=== PATIENT | male | born 1985 | race Caucasian/White ===

== ENCOUNTER 2021-09-13 15:32 | Emergency (ER) | payer BC ==
--- NOTE | 2021-09-13 15:52 | EDM.PDOC ---
ED HPI GENERAL MEDICAL PROBLEM - General Chief Complaint: Abdominal Pain Stated Complaint: SEVERE ABDOMINAL PAIN Time Seen by Provider: 09/13/21 15:52 Source of Information: Reports: Patient - History of Present Illness INITIAL COMMENTS - FREE TEXT/NARRATIVE: Monico, 36-year-old male, presents per pedis to the emergency department with complaint of abdominal pain. Known Crohn's disease with flare-up starting the past 24 hours. Was seen in the clinic last Thursday [facility] at [place] with lab work at that time being within normal limits, "actually improved since previous testing had been done." Had an adjustment in his medication which is not proving to be beneficial at this time. States any intake of solids or even water induces abdominal discomfort, cramping that sometimes will induce emesis. Has had no triggers that would interfere with this with his diet, or fluid intake that he is aware of. Denies fever chills or any form of illness. Onset: Gradual Duration: Day(s):, Getting Worse Location: Reports: Abdomen Middle Abdominal Pain Score (Numeric/FACES): 9 - Related Data Allergies Allergy/AdvReac Type Severity Reaction Status Date / Time Sulfa (Sulfonamide Allergy Hives Verified 09/13/21 15:53 Antibiotics) Home Meds: Home Meds Dicyclomine [Bentyl] 20 mg PO QID PRN 09/13/21 [History] Ustekinumab [Stelara] 45 mg SQ ASDIRECTED 09/13/21 [History] azaTHIOprine [Azathioprine] 50 mg PO DAILY 09/13/21 [History] Past Medical History HEENT History: Reports: Other (See Below) Other HEENT History: glasses for correction Gastrointestinal History: Reports: Other (See Below) Other Gastrointestinal History: Crohn's Social & Family History - Family History Family Medical History: No Pertinent Family History ED ROS GENERAL - Review of Systems Review Of Systems: Comprehensive ROS is negative, except as noted in HPI. ED EXAM, GENERAL - Physical Exam Exam: See Below Free Text/Narrative:: Alert, oriented, in mild nontoxic appearing distress. There is no cyanosis nor pallor noted. HEENT is negative the discharge nor deformity. Archie moist mucous membranes. Neck is soft supple with no lymphadenopathy Thorax is clear with no wheezes nor crackles. Cardiac is regular with no appreciated murmur. Abdomen is soft he expresses mild tenderness across the central abdomen bilateral of the umbilicus. Bowel sounds are present throughout and are slightly fast, but no tinkling nor evidence of obstruction is noted. There is no rebound tenderness. I do not appreciate any megaly of the organs. He is able to move his extremities about with no difficulty. States that sometimes positioning will improve this but in general states it is doing well until a cramp occurs that becomes painful and they typically pass within a few minutes providing is not had recent oral intake. Has been using his Bentyl as needed. Course - Vital Signs Last Recorded V/S: Last Vital Signs Temp 98.7 F 09/13/21 15:48 Pulse 85 09/13/21 16:51 Resp 16 09/13/21 16:51 BP 130/96 H 09/13/21 16:51 Pulse Ox 98 09/13/21 16:51 - Orders/Labs/Meds Orders: Active Orders 24 hr Category Date Time Status Peripheral IV Insertion Adult [OM.PC] Stat Oth 09/13/21 15:59 Ordered Peripheral IV Insertion Adult [OM.PC] Stat Oth 09/13/21 16:24 Ordered Labs: Laboratory Tests 09/13/21 09/13/21 Range/Units 16:00 16:00 WBC 11.40 H (5.00-10.00) 10^3/uL RBC 4.60 (4.50-6.00) 10^6/uL Hgb 14.4 (13.0-17.0) g/dL Hct 43.5 (40.0-52.0) % MCV 94.6 H (82.0-92.0) fL MCH 31.3 H (27.0-31.0) pg MCHC 33.1 (32.0-36.0) g/dL RDW 13.6 (11.5-14.5) % Plt Count 403 H (150-400) 10^3/uL MPV 9.1 (7.4-10.4) fL Immature Gran % (Auto) 0.2 (0.0-5.0) % Neut % (Auto) 81.7 H (50.0-70.0) % Lymph % (Auto) 8.9 L (20.0-40.0) % Rowan % (Auto) 6.5 (2.0-8.0) % Eos % (Auto) 2.4 (1.0-3.0) % Baso % (Auto) 0.3 (0.0-1.0) % Neut # (Auto) 9.33 H (2.50-7.00) 10^3/uL Lymph # (Auto) 1.01 (1.00-4.00) 10^3/uL Rowan # (Auto) 0.74 (0.10-0.80) 10^3/uL Eos # (Auto) 0.27 (0.10-0.30) 10^3/uL Baso # (Auto) 0.03 (0.00-0.10) 10^3/uL Immature Gran # (Auto) 0.02 (0.00-0.50) 10^3/uL Sodium 144 (136-145) mmol/L Potassium 3.6 (3.5-5.1) mmol/L Chloride 104 (98-107) mmol/L Carbon Dioxide 26.2 (21.0-32.0) mmol/L Anion Gap 17.4 H (5-15) mmol/L BUN 8 (7-18) mg/dL Creatinine 0.87 (0.51-1.17) mg/dL Est Cr Clr Drug Dosing 128.84 mL/min Estimated GFR (MDRD) > 60 mL/min Glucose 96 (70-140) mg/dL Calcium 8.9 (8.7-10.3) mg/dL Total Bilirubin 1.0 (0.2-1.0) mg/dL AST 16 (15-37) U/L ALT 17 (14-63) U/L Alkaline Phosphatase 81 (46-116) U/L C-Reactive Protein 4.7 H (0.0-0.9) mg/dL Total Protein 6.8 (6.4-8.2) g/dL Albumin 3.43 (3.40-5.00) g/dL Amylase 29 (25-125) U/L Lipase 73 (73-393) U/L Meds: Medications Discontinued Medications Generic Name Dose Route Start Last Admin Trade Name Freq PRN Reason Stop Dose Admin Dicyclomine HCl 20 mg 09/13/21 16:01 09/13/21 16:27 Dicyclomine 20 Mg/2 Ml Sdv IM 09/13/21 16:02 20 mg ONETIME ONE Administration Hydromorphone HCl 1 mg 09/13/21 16:02 09/13/21 16:17 Hydromorphone 1 Mg/Ml Syringe IVPUSH 09/13/21 16:03 1 mg ONETIME ONE Administration Sodium Chloride 1,000 mls @ 999 mls/hr 09/13/21 16:02 09/13/21 16:15 Normal Saline IV 09/13/21 17:02 999 mls/hr .BOLUS ONE Administration Sodium Chloride 10 ml 09/13/21 16:01 Sodium Chloride 0.9% 10 Ml Syringe FLUSH Q8HR PRN keep vein open Sodium Chloride 10 ml 09/13/21 16:24 Sodium Chloride 0.9% 10 Ml Syringe FLUSH Q8HR PRN keep vein open - Re-Assessments/Exams Free Text/Narrative Re-Assessment/Exam: 09/13/21 16:53 Resting comfortable at this time stating abdominal pain has nearly subsided after hydromorphone, IM Bentyl, and 600 of IV normal saline at this time. Free Text/Narrative Re-Assessment/Exam: 09/13/21 20:43 Review of the [place] chart shows significant improvement in his CRP today compared to his shows significant improvement in his CRP today compared to his. Very low elevation of his WBCs which could be an inflammatory which could be an inflammatory as he should have exhibits no evidence of infectious process infectious process After the fluid and medications administered he is pain-free resting comfortably awaiting discharge. I do explained that he should probably increase his Bentyl to 20 mg and take it 4 times a day to help resolve resting comfortably awaiting discharge. I do explained that he should probably increase his Bentyl to 20 mg and take it 4 times a day to help resolve improve his cramping and contact his provider on Thursday and contact his provider on Thursday these findings as well as potential for adjustment in medication adjustment in medication September. Departure - Departure Time of Disposition: 18:05 Disposition: Home, Self-Care 01 Condition: Good Clinical Impression: Crohn's disease Qualifiers: Gastrointestinal tract location: unspecified location Abdominal pain Qualifiers: Abdominal location: generalized Qualified Code(s): R10.84 - Generalized abdominal pain - Discharge Information *PRESCRIPTION DRUG MONITORING PROGRAM REVIEWED*: Not Applicable *COPY OF PRESCRIPTION DRUG MONITORING REPORT IN PATIENT JEFF: Not Applicable Instructions: Crohn's Disease Referrals: PCP,Not In Area [Primary Care Provider] - Forms: ED Department Discharge Additional Instructions: We will discharge you home continue your medications as ordered other than increasing your Bentyl taking it on a scheduled basis 4 times a day, 20 mg each dose. Other medications as directed. Make sure you drink and eat according to your diet tolerability and contact your provider next week to update them on the status of this visit and your progress since that. In the event you flareup prior to getting to the clinic next week consideration for return to the emergency department. Sepsis Event Note (ED) - Focused Exam Vital Signs: Vital Signs Temp Pulse Resp BP Pulse Ox 09/13/21 16:51 85 16 130/96 H 98 09/13/21 15:48 98.7 F 96 20 166/117 H 98 - Problem List & Annotations (1) Crohn's disease SNOMED Code(s): 40614948 Code(s): K50.90 - CROHN'S DISEASE, UNSPECIFIED, WITHOUT COMPLICATIONS Status: Acute Priority: High Qualifiers: Gastrointestinal tract location: small and large intestine Digestive disease complication type: unspecified complication Qualified Code(s): K50.819 - Crohn's disease of both small and large intestine with unspecified complications (2) Abdominal pain SNOMED Code(s): 86029757 Code(s): R10.9 - UNSPECIFIED ABDOMINAL PAIN Status: Acute Qualifiers: Abdominal location: generalized Qualified Code(s): R10.84 - Generalized abdominal pain - Problem List Review Problem List Initiated/Reviewed/Updated: Yes - My Orders Last 24 Hours: My Active Orders 09/13/21 15:59 Peripheral IV Insertion Adult [OM.PC] Stat 09/13/21 16:24 Peripheral IV Insertion Adult [OM.PC] Stat - Assessment/Plan Last 24 Hours: My Active Orders 09/13/21 15:59 Peripheral IV Insertion Adult [OM.PC] Stat 09/13/21 16:24 Peripheral IV Insertion Adult [OM.PC] Stat Plan: We will discharge you home continue your medications as ordered other than increasing your Bentyl taking it on a scheduled basis 4 times a day, 20 mg each dose. Other medications as directed. Make sure you drink and eat according to your diet tolerability and contact your provider next week to update them on the status of this visit and your progress since that. In the event you flareup prior to getting to the clinic next week consideration for return to the emergency department.
[2021-09-13] MEDS ORDERED: Sodium Chloride 0.9% 10 ML Syringe FLUSH PRN ×2 (16:01→16:24)
[2021-09-13] MEDS ORDERED: Dicyclomine 20 MG/2 ML SDV IM ONE (16:01)
[2021-09-13] MEDS ORDERED: Sodium Chloride 0.9% 1,000 ML IV ONE (16:02)
[2021-09-13] MEDS ORDERED: HYDROmorphone 1 MG/ML Syringe IVPUSH ONE (16:02)
[2021-09-13 16:51] LABS: ANION GAP 17.4 mmol/L (5-15); CHLORIDE,CL 104 mmol/L (98-107); SODIUM,NA 144 mmol/L (136-145)
[2021-09-13 16:52] VITALS: BP 130/96; PULSE 85
== END 2021-09-13 18:26 | disposition home or self-care (01) ==
LOC: KA.ED 15:32
DX: K50.90 Crohn's disease, unspecified, without complications (principal); Z88.2 Allergy status to sulfonamides
CPT/HCPCS: 36415; 80053; 82150; 83690; 85025; 86140; 96372; 96374; 99284; 99284-25; J0500; J1170; J7030

== ENCOUNTER 2021-09-22 16:27 | Emergency (ER) | payer BC ==
[2021-09-22] MEDS ORDERED: Sodium Chloride 0.9% 1,000 ML IV ONE (17:04)
[2021-09-22] MEDS ORDERED: Sodium Chloride 0.9% 10 ML Syringe FLUSH PRN (17:04)
[2021-09-22 17:33] VITALS: BP 138/101; PULSE 76
[2021-09-22 17:39] LABS: ANION GAP 11.1 mmol/L (5-15); CHLORIDE,CL 105 mmol/L (98-107); SODIUM,NA 142 mmol/L (136-145)
[2021-09-22] MEDS ORDERED: HYDROmorphone 1 MG/ML Syringe IVPUSH ONE (18:05)
[2021-09-22] MEDS ORDERED: methylPREDNISolone Sodium Succinate 125 MG/2 ML SDV IVPUSH ONE (18:06)
[2021-09-22] MEDS ORDERED: Ondansetron 4 MG/2 ML SDV IVPUSH ONE (18:06)
--- NOTE | 2021-09-22 18:21 | EDM.PDOC ---
ED HPI GENERAL MEDICAL PROBLEM - General Chief Complaint: General Stated Complaint: BAD STOMACHE PAINS Time Seen by Provider: 09/22/21 17:00 Source of Information: Reports: Patient History Limitations: Reports: No Limitations - History of Present Illness INITIAL COMMENTS - FREE TEXT/NARRATIVE: 36-year-old male presents to the emergency room by himself for complaints of abdominal pain. He has had recent flareups of his Crohn disease over the last couple weeks. He was seen in the emergency room a week ago on Thursday. He has had recent work-ups by his endocrinology teacher in [place]. Lab work has looked pretty unremarkable. He had an additional flareup last Thursday. He was started on Bentall 20 mg p.o. 4 times daily. He does take Stelara for his Crohn's. He denies currently any bleeding from the rectum. He has some loss of appetite. He denies any recent illnesses. His lab work previous looked essentially unremarkable. His white count on his last visit was 11.4 today his lab work shows a white count is 10.27. He reports his pain is more of an ache. He had abrupt onset of his pain after eating after at 10 AM this morning. He has been experiencing some nausea. No vomiting. He is not currently on any steroids. He is nontoxic appearing. Follow-up with his endocrinology teacher is planned for next Thursday which they discussed about proceeding with a CT IV and oral contrast. Onset: Today Onset Date: 09/22/21 Onset Time: 10:00 Duration: Chronic, Getting Worse Location: Reports: Abdomen Quality: Reports: Ache Severity: Moderate Improves with: Reports: Rest Worsens with: Reports: Eating Associated Symptoms: Reports: No Other Symptoms Treatments [facility] TECHNICIAN: Reports: Other Medication(s) Abdomen Pain Score (Numeric/FACES): 8 - Related Data Allergies Allergy/AdvReac Type Severity Reaction Status Date / Time Sulfa (Sulfonamide Allergy Hives Verified 09/22/21 16:50 Antibiotics) Home Meds: Home Meds Dicyclomine [Bentyl] 20 mg PO QID PRN 09/13/21 [History] Ustekinumab [Stelara] 45 mg SQ ASDIRECTED 09/13/21 [History] azaTHIOprine [Azathioprine] 75 mg PO BID 09/13/21 [History] Past Medical History HEENT History: Reports: Other (See Below) Other HEENT History: glasses for correction Gastrointestinal History: Reports: GERD, Other (See Below) Other Gastrointestinal History: Crohn's - Infectious Disease History Infectious Disease History: Reports: Chicken Pox, Shingles - Past Surgical History HEENT Surgical History: Reports: None GI Surgical History: Reports: Colostomy, Hernia, Inguinal Social & Family History - Family History Family Medical History: No Pertinent Family History - Tobacco Use Tobacco Use Status *Q: Never Tobacco User - Caffeine Use Caffeine Use: Reports: Coffee, Soda - Recreational Drug Use Recreational Drug Use: No ED ROS GENERAL - Review of Systems Review Of Systems: See Below Constitutional: Reports: No Symptoms HEENT: Reports: No Symptoms Respiratory: Reports: No Symptoms Cardiovascular: Reports: No Symptoms Endocrine: Reports: No Symptoms GI/Abdominal: Reports: Abdominal Pain, Anorexia, Black Stool, Nausea. Denies: Bloody Stool, Constipation, Diarrhea, Hematemesis, Stool Incontinence, Vomiting : Reports: No Symptoms Musculoskeletal: Reports: No Symptoms Skin: Reports: No Symptoms Neurological: Reports: No Symptoms Psychiatric: Reports: No Symptoms Hematologic/Lymphatic: Reports: No Symptoms Immunologic: Reports: No Symptoms ED EXAM, GENERAL - Physical Exam Exam: See Below Exam Limited By: No Limitations General Appearance: Alert, WD/WN, No Apparent Distress Eye Exam: Bilateral Eye: EOMI Ears: Hearing Grossly Normal Nose: Normal Inspection Throat/Mouth: Normal Inspection, Normal Voice, No Airway Compromise Head: Atraumatic Neck: Normal Inspection Respiratory/Chest: No Respiratory Distress, Lungs Clear, Normal Breath Sounds, No Accessory Muscle Use Cardiovascular: Regular Rate, Rhythm, No Murmur GI/Abdominal: Normal Bowel Sounds, Soft, No Organomegaly, No Distention, Tender (Tenderness in both lower quadrants.). No: Distended, Guarding, Rigid, Rebound Back Exam: Normal Inspection, Full Range of Motion Extremities: Normal Inspection, Normal Range of Motion, Non-Tender, No Pedal Edema Neurological: Alert, Oriented, No Motor/Sensory Deficits Psychiatric: Normal Affect, Normal Mood Skin Exam: Warm, Dry, Intact, Normal Color, No Rash Lymphatic: No Adenopathy Course - Vital Signs Last Recorded V/S: Last Vital Signs Temp 98.3 F 09/22/21 16:42 Pulse 76 09/22/21 17:30 Resp 18 09/22/21 16:42 BP 138/101 H 09/22/21 17:30 Pulse Ox 99 09/22/21 17:30 - Orders/Labs/Meds Orders: Active Orders 24 hr Category Date Time Status Peripheral IV Care [RC] . DIRECTED Care 09/22/21 17:05 Active Sodium Chloride 0.9% [Saline Flush] Med 09/22/21 17:04 Active 10 ml FLUSH Q8HR PRN Peripheral IV Insertion Adult [OM.PC] Routine Oth 09/22/21 17:04 Ordered Medication Orders Sodium Chloride (Sodium Chloride 0.9% 10 Ml Syringe) 10 ml FLUSH Q8HR PRN PRN Reason: keep vein open Last Admin: 09/22/21 17:19 Dose: 10 ml Documented by: SACHA Labs: Laboratory Tests 09/22/21 09/22/21 Range/Units 17:04 17:04 WBC 10.27 H (5.00-10.00) 10^3/uL RBC 4.62 (4.50-6.00) 10^6/uL Hgb 14.3 (13.0-17.0) g/dL Hct 43.1 (40.0-52.0) % MCV 93.3 H (82.0-92.0) fL MCH 31.0 (27.0-31.0) pg MCHC 33.2 (32.0-36.0) g/dL RDW 12.9 (11.5-14.5) % Plt Count 446 H (150-400) 10^3/uL MPV 9.2 (7.4-10.4) fL Immature Gran % (Auto) 0.1 (0.0-5.0) % Neut % (Auto) 75.8 H (50.0-70.0) % Lymph % (Auto) 14.2 L (20.0-40.0) % [place] % (Auto) 6.6 (2.0-8.0) % Eos % (Auto) 2.9 (1.0-3.0) % Baso % (Auto) 0.4 (0.0-1.0) % Neut # (Auto) 7.78 H (2.50-7.00) 10^3/uL Lymph # (Auto) 1.46 (1.00-4.00) 10^3/uL [place] # (Auto) 0.68 (0.10-0.80) 10^3/uL Eos # (Auto) 0.30 (0.10-0.30) 10^3/uL Baso # (Auto) 0.04 (0.00-0.10) 10^3/uL Immature Gran # (Auto) 0.01 (0.00-0.50) 10^3/uL Sodium 142 (136-145) mmol/L Potassium 3.4 L (3.5-5.1) mmol/L Chloride 105 (98-107) mmol/L Carbon Dioxide 29.3 (21.0-32.0) mmol/L Anion Gap 11.1 (5-15) mmol/L BUN 7 (7-18) mg/dL Creatinine 0.87 (0.51-1.17) mg/dL Est Cr Clr Drug Dosing 128.84 mL/min Estimated GFR (MDRD) > 60 mL/min Glucose 115 (70-140) mg/dL Calcium 8.5 L (8.7-10.3) mg/dL Total Bilirubin 0.6 (0.2-1.0) mg/dL AST 12 L (15-37) U/L ALT 17 (14-63) U/L Alkaline Phosphatase 74 (46-116) U/L Total Protein 6.5 (6.4-8.2) g/dL Albumin 3.20 L (3.40-5.00) g/dL Meds: Medications Generic Name Dose Route Start Last Admin Trade Name Freq PRN Reason Stop Dose Admin Sodium Chloride 10 ml 09/22/21 17:04 09/22/21 17:19 Sodium Chloride 0.9% 10 Ml Syringe FLUSH 10 ml Q8HR PRN Administration keep vein open Discontinued Medications Generic Name Dose Route Start Last Admin Trade Name Freq PRN Reason Stop Dose Admin Hydromorphone HCl 1 mg 09/22/21 18:05 Hydromorphone 1 Mg/Ml Syringe IVPUSH 09/22/21 18:06 ONETIME ONE Sodium Chloride 1,000 mls @ 999 mls/hr 09/22/21 17:04 09/22/21 17:18 Normal Saline IV 09/22/21 18:04 999 mls/hr .BOLUS ONE Administration Methylprednisolone Sodium Succinate 125 mg 09/22/21 18:06 Methylprednisolone Sodium Succinate 125 Mg/2 Ml Sdv IVPUSH 09/22/21 18:07 ONETIME ONE Ondansetron HCl 4 mg 09/22/21 18:06 Ondansetron 4 Mg/2 Ml Sdv IVPUSH 09/22/21 18:07 ONETIME ONE - Re-Assessments/Exams Free Text/Narrative Re-Assessment/Exam: 09/22/21 18:30 Patient is given 1 L IV fluids. Lab work is reviewed. White count is normal. Rest of his electrolytes look unremarkable. Patient was given 125 mg of IV Solu-Medrol. Patient was given 4 g IV Zofran. Patient was given 1 mg IV Dilaudid. 09/22/21 18:55 Patient feels his symptoms are relieved he is not currently experiencing any abdominal pain at this time Departure - Departure Time of Disposition: 18:56 Disposition: Home, Self-Care 01 Condition: Good Clinical Impression: Abdominal pain, acute, bilateral lower quadrant Crohn's disease Qualifiers: Gastrointestinal tract location: small and large intestine Digestive disease complication type: unspecified complication Qualified Code(s): K50.819 - Crohn's disease of both small and large intestine with unspecified complications - Discharge Information Referrals: PCP,Not In Area [Primary Care Provider] - Sepsis Event Note (ED) - Evaluation Sepsis Screening Result: No Definite Risk - Focused Exam Vital Signs: Vital Signs Temp Pulse Resp BP Pulse Ox 09/22/21 17:30 76 138/101 H 99 09/22/21 17:15 70 140/105 H 94 L 09/22/21 17:00 84 154/96 H 96 09/22/21 16:45 70 159/102 H 94 L 09/22/21 16:42 98.3 F 79 18 171/110 H 98 - My Orders Last 24 Hours: My Active Orders 09/22/21 17:04 Sodium Chloride 0.9% [Saline Flush] 10 ml FLUSH Q8HR PRN Peripheral IV Insertion Adult [OM.PC] Routine 09/22/21 17:05 Peripheral IV Care [RC] . DIRECTED - Assessment/Plan Last 24 Hours: My Active Orders 09/22/21 17:04 Sodium Chloride 0.9% [Saline Flush] 10 ml FLUSH Q8HR PRN Peripheral IV Insertion Adult [OM.PC] Routine 09/22/21 17:05 Peripheral IV Care [RC] . DIRECTED Assessment:: Flareup of Crohn's. Acute abdominal pain. Plan: 1. 1 L normal saline fluids given 2. Patient was given 125 mg IV Solu-Medrol. 3. Zofran 4 mg IV given 4. Dilaudid 1 mg IV for abdominal pain given 5. Patient will be sent home on some oral Zofran ODT as needed for nausea. Start him on prednisone 50 mg daily. 6. Patient will keep his scheduled appointment with his endocrinology teacher next week in [place].. 7. Return back to the emergency room if symptoms worsen or abdominal pain persist without relief. 8. Patient will continue with his regularly prescribed medications for his Crohn's.
== END 2021-09-22 19:00 | disposition home or self-care (01) ==
LOC: KA.ED 16:27
DX: K50.819 Crohn's disease of both small and large intestine with unspecified complications (principal); Z88.2 Allergy status to sulfonamides; Z79.899 Other long term (current) drug therapy
CPT/HCPCS: 36415; 80053; 85025; 96374; 96375; 99284; 99284-25; J1170; J2405; J2930; J7030

== ENCOUNTER 2021-10-03 17:30 | Emergency (ER) | payer BC ==
[2021-10-03 17:43] VITALS: BP 150/107; PULSE 83
[2021-10-03] MEDS ORDERED: Sodium Chloride 0.9% 10 ML Syringe FLUSH PRN (17:51)
[2021-10-03] MEDS ORDERED: Sodium Chloride 0.9% 1,000 ML IV ONE (17:51)
[2021-10-03] MEDS ORDERED: HYDROmorphone 1 MG/ML Syringe IVPUSH ONE (18:15)
[2021-10-03] MEDS ORDERED: Ondansetron 4 MG/2 ML SDV IVPUSH ONE (18:15)
[2021-10-03] MEDS ORDERED: methylPREDNISolone Sodium Succinate 125 MG/2 ML SDV IVPUSH ONE (18:15)
[2021-10-03 18:20] LABS: ANION GAP 15.1 mmol/L (5-15); CHLORIDE,CL 104 mmol/L (98-107); SODIUM,NA 143 mmol/L (136-145)
--- NOTE | 2021-10-03 18:28 | EDM.PDOC ---
ED HPI GENERAL MEDICAL PROBLEM - General Chief Complaint: Abdominal Pain Stated Complaint: ABDOMINAL PAIN Time Seen by Provider: 10/03/21 18:16 Source of Information: Reports: Patient History Limitations: Reports: No Limitations - History of Present Illness INITIAL COMMENTS - FREE TEXT/NARRATIVE: 36 YO WM PRESENTS TO ER WITH COMPLAINTS OF PERIUMBILICAL ABDOMINAL PAIN WITH HISTORY OF CROHN'S DZ. PT RECENTLY SEEN IN [place] BY GASTROENTEROLOGY WHO ORDERED CT ABD/PELVIS 10/01/2021- RESULTS THICKENING OF JEJUNUM WITHOUT ABSCESS. PT CURRENTLY TAKING PREDNISONE 40MG DAILY WITH INSTRUCTIONS TO TAPER. PT ON NEW IMMUNOSUPPRESSANT INFUSIONS BUT PT REPORTS IT DOESN'T APPEAR TO BE HELPING. PT DENIES NAUSEA/VOMITING, NO FEVER/CHILLS. PT REPORTS DIARRHEA HAS IMPROVED SINCE STARTING INFUSIONS BUT ABDOMINAL PAIN HAS PERSISTED. PT DENIES RECTAL BLEEDING. PT EATING AND DRINKING WELL BUT REPORTS IT DOES INCREASE HIS PAIN WITH ANY INGESTION. Duration: Chronic, Improving, Waxing/Waning Location: Reports: Abdomen Quality: Reports: Ache Severity: Moderate Improves with: Reports: None Worsens with: Reports: None Associated Symptoms: Reports: No Other Symptoms, Loss of Appetite. Denies: Fever/Chills, Nausea/Vomiting, Rash Middle Abdominal Pain Score (Numeric/FACES): 8 - Related Data Allergies Allergy/AdvReac Type Severity Reaction Status Date / Time Sulfa (Sulfonamide Allergy Hives Verified 10/03/21 17:38 Antibiotics) Home Meds: Home Meds azaTHIOprine [Azathioprine] 75 mg PO BID 09/13/21 [History] Hydrocodone/Acetaminophen [HYDROcodone-Acetaminophen 10-325 MG] 1 each PO Q6HR PRN #10 tablet 10/03/21 [Rx] Non-Formulary Medication [NF Drug] 1 dose IV Q2M 10/03/21 [History] predniSONE [Prednisone] 40 mg PO ASDIRECTED 10/03/21 [History] Past Medical History HEENT History: Reports: Other (See Below) Other HEENT History: glasses for correction Gastrointestinal History: Reports: GERD, Other (See Below) Other Gastrointestinal History: Crohn's - Infectious Disease History Infectious Disease History: Reports: Chicken Pox, Shingles - Past Surgical History HEENT Surgical History: Reports: None GI Surgical History: Reports: Colostomy, Hernia, Inguinal Social & Family History - Family History Family Medical History: No Pertinent Family History - Caffeine Use Caffeine Use: Reports: Coffee, Soda ED ROS GENERAL - Review of Systems Review Of Systems: See Below Constitutional: Reports: No Symptoms HEENT: Reports: No Symptoms Respiratory: Reports: No Symptoms Cardiovascular: Reports: No Symptoms Endocrine: Reports: No Symptoms GI/Abdominal: Reports: Abdominal Pain, Diarrhea : Reports: No Symptoms Musculoskeletal: Reports: No Symptoms Skin: Reports: No Symptoms Neurological: Reports: No Symptoms Psychiatric: Reports: No Symptoms Hematologic/Lymphatic: Reports: No Symptoms Immunologic: Reports: No Symptoms ED EXAM, GI/ABD - Physical Exam Exam: See Below Exam Limited By: No Limitations General Appearance: Alert, WD/WN, No Apparent Distress Respiratory/Chest: No Respiratory Distress, Lungs Clear, Normal Breath Sounds, No Accessory Muscle Use, Chest Non-Tender Cardiovascular: Normal Peripheral Pulses, Regular Rate, Rhythm, No Edema, No Gallop, No JVD, No Murmur, No Rub GI/Abdominal Exam: Normal Bowel Sounds, Soft, No Organomegaly, No Distention, No Abnormal Bruit, No Mass, Pelvis Stable, Tender (LOWER ABDOMINAL TENDERNESS WITHOUT REBOUND OR GUARDING. ) Back Exam: Normal Inspection, Full Range of Motion, NT Extremities: Normal Inspection, Normal Range of Motion, Non-Tender, Normal Capillary Refill, No Pedal Edema Neurological: Alert, Oriented, CN II-XII Intact, Normal Cognition, Normal Gait, Normal Reflexes, No Motor/Sensory Deficits Psychiatric: Normal Affect, Normal Mood Skin Exam: Warm, Dry, Intact, Normal Color, No Rash Lymphatic: No Adenopathy Course - Vital Signs Last Recorded V/S: Last Vital Signs Temp 98.6 F 10/03/21 17:40 Pulse 83 10/03/21 17:40 Resp 16 10/03/21 17:40 BP 150/107 H 10/03/21 17:40 Pulse Ox 96 10/03/21 17:40 - Orders/Labs/Meds Orders: Active Orders 24 hr Category Date Time Status Peripheral IV Care [RC] . DIRECTED Care 10/03/21 17:51 Active UA W/MICROSCOPIC [URIN] Stat Lab 10/03/21 17:51 Ordered Sodium Chloride 0.9% [Normal Saline] 1,000 ml Med 10/03/21 17:51 Active IV .BOLUS Sodium Chloride 0.9% [Saline Flush] Med 10/03/21 17:51 Active 10 ml FLUSH Q8HR PRN Peripheral IV Insertion Adult [OM.PC] Routine Oth 10/03/21 17:51 Ordered Medication Orders Sodium Chloride (Normal Saline) 1,000 mls @ 999 mls/hr IV .BOLUS ONE Stop: 10/03/21 18:51 Last Admin: 10/03/21 18:02 Dose: 999 mls/hr Documented by: CR Sodium Chloride (Sodium Chloride 0.9% 10 Ml Syringe) 10 ml FLUSH Q8HR PRN PRN Reason: keep vein open Last Admin: 10/03/21 18:02 Dose: 10 ml Documented by: CR Labs: Laboratory Tests 10/03/21 10/03/21 Range/Units 17:51 17:51 WBC 18.77 H (5.00-10.00) 10^3/uL RBC 4.68 (4.50-6.00) 10^6/uL Hgb 14.5 (13.0-17.0) g/dL Hct 44.2 (40.0-52.0) % MCV 94.4 H (82.0-92.0) fL MCH 31.0 (27.0-31.0) pg MCHC 32.8 (32.0-36.0) g/dL RDW 13.0 (11.5-14.5) % Plt Count 487 H (150-400) 10^3/uL MPV 8.9 (7.4-10.4) fL Immature Gran % (Auto) 0.5 (0.0-5.0) % Neut % (Auto) 88.2 H (50.0-70.0) % Lymph % (Auto) 5.9 L (20.0-40.0) % [place] % (Auto) 5.3 (2.0-8.0) % Eos % (Auto) 0.0 L (1.0-3.0) % Baso % (Auto) 0.1 (0.0-1.0) % Neut # (Auto) 16.57 H (2.50-7.00) 10^3/uL Lymph # (Auto) 1.10 (1.00-4.00) 10^3/uL [place] # (Auto) 1.00 H (0.10-0.80) 10^3/uL Eos # (Auto) 0.00 L (0.10-0.30) 10^3/uL Baso # (Auto) 0.01 (0.00-0.10) 10^3/uL Immature Gran # (Auto) 0.09 (0.00-0.50) 10^3/uL Sodium 143 (136-145) mmol/L Potassium 4.3 (3.5-5.1) mmol/L Chloride 104 (98-107) mmol/L Carbon Dioxide 28.2 (21.0-32.0) mmol/L Anion Gap 15.1 H (5-15) mmol/L BUN 13 (7-18) mg/dL Creatinine 0.77 (0.51-1.17) mg/dL Est Cr Clr Drug Dosing 145.57 mL/min Estimated GFR (MDRD) > 60 mL/min Glucose 102 (70-140) mg/dL Calcium 8.9 (8.7-10.3) mg/dL Total Bilirubin 0.6 (0.2-1.0) mg/dL AST 13 L (15-37) U/L ALT 32 (14-63) U/L Alkaline Phosphatase 63 (46-116) U/L Total Protein 6.3 L (6.4-8.2) g/dL Albumin 3.25 L (3.40-5.00) g/dL Lipase 81 (73-393) U/L Meds: Medications Generic Name Dose Route Start Last Admin Trade Name Jeana PRN Reason Stop Dose Admin Sodium Chloride 1,000 mls @ 999 mls/hr 10/03/21 17:51 10/03/21 18:02 Normal Saline IV 10/03/21 18:51 999 mls/hr .BOLUS ONE Administration Sodium Chloride 10 ml 10/03/21 17:51 10/03/21 18:02 Sodium Chloride 0.9% 10 Ml Syringe FLUSH 10 ml Q8HR PRN Administration keep vein open Discontinued Medications Generic Name Dose Route Start Last Admin Trade Name Freq PRN Reason Stop Dose Admin Hydromorphone HCl 1 mg 10/03/21 18:15 10/03/21 18:27 Hydromorphone 1 Mg/Ml Syringe IVPUSH 10/03/21 18:16 1 mg ONETIME ONE Administration Methylprednisolone Sodium Succinate 125 mg 10/03/21 18:15 10/03/21 18:30 Methylprednisolone Sodium Succinate 125 Mg/2 Ml Sdv IVPUSH 10/03/21 18:16 125 mg ONETIME ONE Administration Ondansetron HCl 4 mg 10/03/21 18:15 10/03/21 18:24 Ondansetron 4 Mg/2 Ml Sdv IVPUSH 10/03/21 18:16 4 mg ONETIME ONE Administration Departure - Departure Time of Disposition: 18:44 Disposition: Home, Self-Care 01 Condition: Fair Clinical Impression: Crohn's disease Qualifiers: Gastrointestinal tract location: small and large intestine Digestive disease complication type: without complication Qualified Code(s): K50.80 - Crohn's disease of both small and large intestine without complications - Discharge Information Prescriptions: Hydrocodone/Acetaminophen [HYDROcodone-Acetaminophen 10-325 MG] 1 each PO Q6HR PRN #10 tablet PRN Reason: Pain Referrals: Johana Yan SET OFF PRESS OPERATOR [Primary Care Provider] - Forms: ED Department Discharge Additional Instructions: 1. DISCHARGE HOME 2. HYDROCODONE 10/325MG #10 TAKE 1 TABLET BY MOUTH EVERY 6 HOURS NEEDED FOR PAIN 3. CONTINUE PREDNISONE 40MG DAILY 4. CALL GI DOCTOR FOR FURTHER MANAGEMENT 5. RETURN TO ER FOR WORSENING SYMPTOMS Sepsis Event Note (ED) - Evaluation Sepsis Screening Result: No Definite Risk - Focused Exam Vital Signs: Vital Signs Temp Pulse Resp BP Pulse Ox 10/03/21 17:40 98.6 F 83 16 150/107 H 96 - My Orders Last 24 Hours: My Active Orders 10/03/21 17:51 Peripheral IV Care [RC] . DIRECTED UA W/MICROSCOPIC [URIN] Stat Sodium Chloride 0.9% [Normal Saline] 1,000 ml IV .BOLUS Sodium Chloride 0.9% [Saline Flush] 10 ml FLUSH Q8HR PRN Peripheral IV Insertion Adult [OM.PC] Routine - Assessment/Plan Last 24 Hours: My Active Orders 10/03/21 17:51 Peripheral IV Care [RC] . DIRECTED UA W/MICROSCOPIC [URIN] Stat Sodium Chloride 0.9% [Normal Saline] 1,000 ml IV .BOLUS Sodium Chloride 0.9% [Saline Flush] 10 ml FLUSH Q8HR PRN Peripheral IV Insertion Adult [OM.PC] Routine Assessment:: 1. CROHN'S FLARE Plan: 1. DISCHARGE HOME 2. HYDROCODONE 10/325MG #10 TAKE 1 TABLET BY MOUTH EVERY 6 HOURS NEEDED FOR PAIN 3. CONTINUE PREDNISONE 40MG DAILY 4. CALL GI DOCTOR FOR FURTHER MANAGEMENT 5. RETURN TO ER FOR WORSENING SYMPTOMS
== END 2021-10-03 19:22 | disposition home or self-care (01) ==
LOC: KA.ED 17:30
DX: K50.80 Crohn's disease of both small and large intestine without complications (principal); K21.9 Gastro-esophageal reflux disease without esophagitis; Z88.2 Allergy status to sulfonamides; Z79.899 Other long term (current) drug therapy
CPT/HCPCS: 36415; 80053; 83690; 85025; 96374; 96375; 99283; 99284; J1170; J2405; J2930; J7030

== ENCOUNTER 2021-10-23 15:06 | Emergency (ER) | payer BC ==
[2021-10-23] MEDS: Sodium Chloride 0.9% 1,000 ML IV ONE (15:23)
[2021-10-23] MEDS: Ondansetron 4 MG/2 ML SDV IVPUSH ONE (15:28)
--- NOTE | 2021-10-23 15:28 | EDM.PDOC ---
ED HPI GENERAL MEDICAL PROBLEM - General Chief Complaint: Abdominal Pain Stated Complaint: ABDOMINAL PAIN Time Seen by Provider: 10/23/21 15:20 Source of Information: Reports: Patient - History of Present Illness INITIAL COMMENTS - FREE TEXT/NARRATIVE: Monico, 36-year-old male, presents emergency department ambulatory with complaint of Crohn's flareup abdominal pain. He was seen recently with his specialist in [place] undergoing CT IV contrast with no significant issues found. Abscess resolved in sigmoid/rectal tissue. Has had colonoscopy remote enough that they are now willing to undergo that and he is just now completed his initiation trial of medication, having received frirst dose Entyvio 300 mg Scheduled to go on the next scheduled monthly starting November. Is awaiting Covid Vaccination and influenza vaccine per gastro clearance. Denies fever chills or other associated illness. Had bowel movements x3 today with no pain or concerns with them. Denies any urination issues. Denies fever or chills. States he had feeling of this developing this morning upon awakening and spent the morning moving snow in the event of worsening symptoms. Onset: Today, Gradual Lower Mid Abdomen Pain Score (Numeric/FACES): 6 - Related Data Allergies Allergy/AdvReac Type Severity Reaction Status Date / Time Sulfa (Sulfonamide Allergy Hives Verified 10/23/21 15:08 Antibiotics) Home Meds: Home Meds azaTHIOprine [Azathioprine] 75 mg PO BEDTIME 09/13/21 [History] Non-Formulary Medication [NF Drug] 1 dose IV Q2M 10/03/21 [History] predniSONE [Prednisone] 45 mg PO DAILY 10/03/21 [History] Hydrocodone/Acetaminophen [HYDROcodone-Acetaminophen 10-325 MG] 1 each PO 5XDAY 5 Days #10 tablet 10/23/21 [Rx] Past Medical History HEENT History: Reports: Other (See Below) Other HEENT History: glasses for correction Gastrointestinal History: Reports: GERD, Other (See Below) Other Gastrointestinal History: Crohn's - Infectious Disease History Infectious Disease History: Reports: Chicken Pox, Shingles - Past Surgical History HEENT Surgical History: Reports: None GI Surgical History: Reports: Colostomy, Hernia, Inguinal Social & Family History - Family History Family Medical History: No Pertinent Family History - Caffeine Use Caffeine Use: Reports: Coffee, Soda ED ROS GENERAL - Review of Systems Review Of Systems: Comprehensive ROS is negative, except as noted in HPI. ED EXAM, GENERAL - Physical Exam Exam: See Below Free Text/Narrative:: Alert, oriented, in mild painful distress. HEENT is negative discharge or deformity with pink moist mucous membranes. There is no evidence of cyanosis nor pallor. Neck is soft supple no lymphadenopathy. Thorax is clear throughout with no wheezes no crackles. Cardiac S1-S2 with no appreciated murmur. Abdomen has bowel sounds present mildly hyperactive with generalized tenderness to the umbilical region bilateral with no mass no rebound tenderness. Mild herniation around the umbilicus is noted. No deficits to moving of his extremities or his function. Mild nausea with abdominal discomfort main complaint. Course - Vital Signs Last Recorded V/S: Last Vital Signs Temp 97.4 F 10/23/21 15:15 Pulse 89 10/23/21 15:40 Resp 18 10/23/21 15:40 BP 139/106 H 10/23/21 15:40 Pulse Ox 96 10/23/21 15:40 - Orders/Labs/Meds Labs: Laboratory Tests 10/23/21 10/23/21 Range/Units 15:27 15:27 WBC 14.44 H (5.00-10.00) 10^3/uL RBC 4.94 (4.50-6.00) 10^6/uL Hgb 15.4 (13.0-17.0) g/dL Hct 47.5 (40.0-52.0) % MCV 96.2 H (82.0-92.0) fL MCH 31.2 H (27.0-31.0) pg MCHC 32.4 (32.0-36.0) g/dL RDW 13.0 (11.5-14.5) % Plt Count 455 H (150-400) 10^3/uL MPV 8.8 (7.4-10.4) fL Immature Gran % (Auto) 0.2 (0.0-5.0) % Neut % (Auto) 90.8 H (50.0-70.0) % Lymph % (Auto) 4.3 L (20.0-40.0) % [place] % (Auto) 4.7 (2.0-8.0) % Eos % (Auto) 0.0 L (1.0-3.0) % Baso % (Auto) 0.0 (0.0-1.0) % Neut # (Auto) 13.11 H (2.50-7.00) 10^3/uL Lymph # (Auto) 0.62 L (1.00-4.00) 10^3/uL [place] # (Auto) 0.68 (0.10-0.80) 10^3/uL Eos # (Auto) 0.00 L (0.10-0.30) 10^3/uL Baso # (Auto) 0.00 (0.00-0.10) 10^3/uL Immature Gran # (Auto) 0.03 (0.00-0.50) 10^3/uL Sodium 139 (136-145) mmol/L Potassium 4.4 (3.5-5.1) mmol/L Chloride 101 (98-107) mmol/L Carbon Dioxide 26.6 (21.0-32.0) mmol/L Anion Gap 15.8 H (5-15) mmol/L BUN 14 (7-18) mg/dL Creatinine 0.80 (0.51-1.17) mg/dL Est Cr Clr Drug Dosing 140.11 mL/min Estimated GFR (MDRD) > 60 mL/min Glucose 122 (70-140) mg/dL Calcium 9.4 (8.7-10.3) mg/dL Total Bilirubin 0.7 (0.2-1.0) mg/dL AST 11 L (15-37) U/L ALT 35 (14-63) U/L Alkaline Phosphatase 79 (46-116) U/L Total Protein 7.1 (6.4-8.2) g/dL Albumin 3.65 (3.40-5.00) g/dL Amylase 42 (25-125) U/L Lipase 88 (73-393) U/L Meds: Medications Discontinued Medications Generic Name Dose Route Start Last Admin Trade Name Freq PRN Reason Stop Dose Admin Hydromorphone HCl Confirm 10/23/21 15:25 10/23/21 15:37 Hydromorphone 1 Mg/Ml Syringe Administered 10/23/21 15:26 Not Given Dose 1 mg .ROUTE .STK-MED ONE Hydromorphone HCl 1 mg 10/23/21 15:36 10/23/21 15:30 Hydromorphone 1 Mg/Ml Syringe IVPUSH 10/23/21 15:37 1 mg ONETIME ONE Administration Sodium Chloride Confirm 10/23/21 15:16 10/23/21 15:37 Normal Saline Administered 10/23/21 15:17 Not Given Dose 1,000 mls @ as directed .ROUTE .STK-MED ONE Sodium Chloride 1,000 mls @ 999 mls/hr 10/23/21 15:36 10/23/21 15:23 Normal Saline IV 10/23/21 16:36 999 mls/hr .BOLUS ONE Administration Ondansetron HCl Confirm 10/23/21 15:25 10/23/21 15:36 Ondansetron 4 Mg/2 Ml Sdv Administered 10/23/21 15:26 Not Given Dose 4 mg .ROUTE .STK-MED ONE Ondansetron HCl 4 mg 10/23/21 15:27 10/23/21 15:28 Ondansetron 4 Mg/2 Ml Sdv IVPUSH 10/23/21 15:28 4 mg ONETIME ONE Administration - Re-Assessments/Exams Free Text/Narrative Re-Assessment/Exam: 10/23/21 16:15 Pain-free at this time willing to be discharged home when fluids complete. We discussed medication and with the previous oxycodone used as needed 1/2 to 1 tablet as his condition seems to be improving in general with now reaching the maintenance dose of the Entyvio would consider doing that short term. Free Text/Narrative Re-Assessment/Exam: 10/23/21 16:39 [place] prescription monitoring program reviewed and copy is printed the place in the chart. Departure - Departure Time of Disposition: 16:20 Disposition: Home, Self-Care 01 Condition: Good Clinical Impression: Crohn's disease Qualifiers: Gastrointestinal tract location: small and large intestine Digestive disease complication type: without complication Qualified Code(s): K50.80 - Crohn's disease of both small and large intestine without complications Abdominal pain Qualifiers: Abdominal location: periumbilical Qualified Code(s): R10.33 - Periumbilical pain - Discharge Information *PRESCRIPTION DRUG MONITORING PROGRAM REVIEWED*: Yes *COPY OF PRESCRIPTION DRUG MONITORING REPORT IN PATIENT JEFF: Yes Prescriptions: Hydrocodone/Acetaminophen [HYDROcodone-Acetaminophen 10-325 MG] 1 each PO 5XDAY 5 Days #10 tablet Instructions: Pain Medicine Instructions, [id number], Crohn's Disease Referrals: Johana Yan, BILLING REPRESENTATIVE [Primary Care Provider] - Forms: ED Department Discharge Additional Instructions: Continue all your medications as directed and recheck with your primary provider and gastroenterology as needed. Diet as recommended and tolerated making sure you do not get dehydrated. Hydrocodone 07/21/2025 #10 has been ordered at [facility] for you to picker you may take 1/2 to 1 tablet every 6 hours as needed for increased pain. It seems that you are gradually improving with the Entyvio and hopefully the combination of medications you are on at this time will reduce your risk of flareup pain. Contact your clinic for follow-up as needed, return to the emergency department outside of clinic hours. Sepsis Event Note (ED) - Focused Exam Vital Signs: Vital Signs Temp Pulse Resp BP Pulse Ox 10/23/21 15:40 89 18 139/106 H 96 10/23/21 15:15 97.4 F 81 20 173/108 H 97 - Problem List & Annotations (1) Crohn's disease SNOMED Code(s): 90980829 Code(s): K50.90 - CROHN'S DISEASE, UNSPECIFIED, WITHOUT COMPLICATIONS Status: Chronic Priority: High Qualifiers: Gastrointestinal tract location: small and large intestine Digestive disease complication type: without complication Qualified Code(s): K50.80 - Crohn's disease of both small and large intestine without complications (2) Abdominal pain SNOMED Code(s): 74493089 Code(s): R10.9 - UNSPECIFIED ABDOMINAL PAIN Status: Acute Priority: High Qualifiers: Abdominal location: periumbilical Qualified Code(s): R10.33 - Periumbilical pain - Problem List Review Problem List Initiated/Reviewed/Updated: Yes - Assessment/Plan Plan: Continue all your medications as directed and recheck with your primary provider and gastroenterology as needed. Diet as recommended and tolerated making sure you do not get dehydrated. Hydrocodone 07/21/2025 #10 has been ordered at [facility] for you to picker you may take 1/2 to 1 tablet every 6 hours as needed for increased pain. It seems that you are gradually improving with the Entyvio and hopefully the combination of medications you are on at this time will reduce your risk of flareup pain. Contact your clinic for follow-up as needed, return to the emergency department outside of clinic hours.
[2021-10-23] MEDS: HYDROmorphone 1 MG/ML Syringe IVPUSH ONE (15:30)
[2021-10-23] MEDS: Ondansetron 4 MG/2 ML SDV ONE (15:36)
[2021-10-23] MEDS: HYDROmorphone 1 MG/ML Syringe ONE (15:37)
[2021-10-23] MEDS: Sodium Chloride 0.9% 1,000 ML ONE (15:37)
[2021-10-23 15:44] VITALS: PULSE 89
[2021-10-23 15:58] LABS: ANION GAP 15.8 mmol/L (5-15); CHLORIDE,CL 101 mmol/L (98-107); SODIUM,NA 139 mmol/L (136-145)
[2021-10-23 17:40] VITALS: BP 134/90
== END 2021-10-23 16:30 | disposition home or self-care (01) ==
LOC: KA.ED 15:06
DX: K50.80 Crohn's disease of both small and large intestine without complications (principal); Z88.2 Allergy status to sulfonamides
CPT/HCPCS: 36415; 80053; 82150; 83690; 85025; 96374; 96375; 99284; 99284-25; J1170; J2405; J7030

== ENCOUNTER 2021-12-21 14:52 | Emergency (ER) | payer BC ==
[2021-12-21] MEDS ORDERED: Ondansetron 4 MG/2 ML SDV IVPUSH ONE (15:22)
[2021-12-21] MEDS ORDERED: HYDROmorphone 1 MG/ML Syringe IVPUSH ONE (15:22)
[2021-12-21] MEDS ORDERED: methylPREDNISolone Sodium Succinate 125 MG/2 ML SDV IVPUSH ONE (15:22)
[2021-12-21] MEDS ORDERED: Sodium Chloride 0.9% 1,000 ML IV ONE (15:22)
[2021-12-21 15:25] VITALS: BP 139/99; PULSE 88
[2021-12-21] MEDS ORDERED: predniSONE 20 MG Tab PO ONE (15:32)
[2021-12-21] MEDS ORDERED: Acetaminophen/oxyCODONE 325-5 MG Tab PO ONE (15:32)
== END 2021-12-21 16:40 | disposition home or self-care (01) ==
LOC: KA.ED 14:52
DX: K50.80 Crohn's disease of both small and large intestine without complications (principal); Z88.2 Allergy status to sulfonamides
CPT/HCPCS: 96374; 96375; 99283-25; 99284; A9270-GY; J1170; J2405; J2930; J7030; J7512

== ENCOUNTER 2022-01-31 16:28 | Emergency (ER) | payer BC ==
[2022-01-31] MEDS: Ondansetron 4 MG/2 ML SDV IVPUSH ONE (16:50)
[2022-01-31] MEDS: Sodium Chloride 0.9% 10 ML Syringe FLUSH PRN (16:51)
[2022-01-31 17:10] LABS: ANION GAP 9.8 mmol/L (5-15); CHLORIDE,CL 104 mmol/L (98-107); SODIUM,NA 141 mmol/L (136-145)
[2022-01-31] MEDS: Sodium Chloride 0.9% 1,000 ML ONE (17:15)
[2022-01-31] MEDS: HYDROmorphone 1 MG/ML Syringe ONE (17:15)
[2022-01-31] MEDS: methylPREDNISolone Sodium Succinate 125 MG/2 ML SDV ONE (17:16)
[2022-01-31] MEDS: methylPREDNISolone Sodium Succinate 125 MG/2 ML SDV IVPUSH ONE (17:16)
[2022-01-31] MEDS: HYDROmorphone 1 MG/ML Syringe IVPUSH ONE (17:16)
[2022-01-31] MEDS: Sodium Chloride 0.9% 1,000 ML IV ONE (17:17)
[2022-01-31 17:40] VITALS: BP 123/92; PULSE 80
== END 2022-01-31 18:28 | disposition home or self-care (01) ==
LOC: KA.ED 16:28
DX: K50.80 Crohn's disease of both small and large intestine without complications (principal); K21.9 Gastro-esophageal reflux disease without esophagitis; Z88.2 Allergy status to sulfonamides; Z79.899 Other long term (current) drug therapy
CPT/HCPCS: 36415; 80053; 81001; 85025; 96374; 96375; 99284; 99284-25; J1170; J2405; J2930; J3490; J7030

== ENCOUNTER 2022-02-09 11:25 | Emergency (ER) | payer BC ==
[2022-02-09] MEDS ORDERED: Sodium Chloride 0.9% 10 ML Syringe FLUSH PRN (12:04)
[2022-02-09] MEDS: Ondansetron 4 MG/2 ML SDV IVPUSH ONE (12:18)
[2022-02-09] MEDS: HYDROmorphone 1 MG/ML Syringe IVPUSH ONE (12:20)
[2022-02-09 12:31] LABS: CHLORIDE,CL 106 mmol/L (98-107); SODIUM,NA 139 mmol/L (136-145)
[2022-02-09] MEDS: methylPREDNISolone Sodium Succinate 125 MG/2 ML SDV IVPUSH ONE (12:48)
[2022-02-09] MEDS: Sodium Chloride 0.9% 1,000 ML IV ONE (12:55)
[2022-02-09] MEDS: Acetaminophen/HYDROcodone 325-10 MG Tab PO ONE (13:29)
[2022-02-09 14:57] VITALS: BP 138/98; PULSE 78
== END 2022-02-09 13:30 | disposition home or self-care (01) ==
LOC: KA.ED 11:25
DX: K50.90 Crohn's disease, unspecified, without complications (principal); K21.9 Gastro-esophageal reflux disease without esophagitis; Z88.2 Allergy status to sulfonamides
CPT/HCPCS: 36415; 80053; 81003; 83690; 85025; 96374; 96375; 99284; 99284-25; A9270-GY; J1170; J2405; J2930; J7030

== ENCOUNTER 2022-06-21 10:30 | Emergency (ER) | payer BC ==
[2022-06-21] MEDS ORDERED: methylPREDNISolone Sodium Succinate 125 MG/2 ML SDV IVPUSH ONE (11:23)
[2022-06-21] MEDS ORDERED: HYDROmorphone 1 MG/ML Syringe IVPUSH ONE (11:23)
[2022-06-21 11:47] VITALS: BP 140/80; PULSE 70
== END 2022-06-21 11:48 | disposition home or self-care (01) ==
LOC: KA.ED 10:30
DX: K50.90 Crohn's disease, unspecified, without complications (principal); Z88.2 Allergy status to sulfonamides
CPT/HCPCS: 96374; 96375; 99283; 99283-25; J1170; J2930

== ENCOUNTER 2022-07-21 21:30 | Emergency (ER) | payer BC ==
[~2022-07-21 21:30] MED LIST: Sodium Chloride 0.9% 10 ML Syringe IV PRN
[2022-07-21] MEDS ORDERED: HYDROmorphone 2 MG Tab PO ONE (21:31)
[2022-07-21] MEDS ORDERED: Sodium Chloride 0.9% 1,000 ML IV ONE (21:36)
[2022-07-21] MEDS ORDERED: Ondansetron 4 MG/2 ML SDV IVPUSH ONE (21:38)
[2022-07-21] MEDS ORDERED: Dexamethasone 10 MG/ML SDV IVPUSH ONE (21:42)
[2022-07-21] MEDS ORDERED: HYDROmorphone 1 MG/ML Syringe IVPUSH ONE (21:45)
[2022-08-16 11:28] VITALS: BP 151/113; PULSE 85
[2022-08-18 14:17] LABS: ANION GAP 12.6 mmol/L (5-15)
== END 2022-07-21 22:40 | disposition home or self-care (01) ==
LOC: KA.ED 21:30
DX: K50.90 Crohn's disease, unspecified, without complications (principal)
CPT/HCPCS: 36415; 80053; 85025; 86140; 96361; 96374; 96375; 99284; 99284-25; A9270-GY; J1100; J1170; J2405; J7030

== ENCOUNTER 2022-07-26 16:00 | Emergency (ER) | payer BC | END 2022-07-26 17:25 | disposition home or self-care (01) | LOC: KA.ED 16:00 → EDSTATUS 17:48 | DX: K59.00 Constipation, unspecified (principal); K50.90 Crohn's disease, unspecified, without complications | CPT/HCPCS: 74021; 99283 ==

== ENCOUNTER 2022-08-16 11:00 | Emergency (ER) | payer BC ==
[2022-08-16] MEDS ORDERED: Sodium Chloride 0.9% 1,000 ML IV ONE (11:11)
[2022-08-16 11:46] LABS: ANION GAP 10.2 mmol/L (5-15)
[2022-08-16] MEDS ORDERED: HYDROmorphone 1 MG/ML Syringe IVPUSH ONE (11:47)
[2022-08-16] MEDS ORDERED: Ondansetron 4 MG/2 ML SDV IVPUSH ONE (11:47)
[2022-08-16] MEDS ORDERED: methylPREDNISolone Sodium Succinate 125 MG/2 ML SDV IVPUSH ONE (11:47)
[2022-08-16 13:04] VITALS: BP 139/101; PULSE 86
== END 2022-08-16 13:00 | disposition home or self-care (01) ==
LOC: KA.ED 11:00
DX: K50.90 Crohn's disease, unspecified, without complications (principal); Z88.2 Allergy status to sulfonamides
CPT/HCPCS: 80053; 81003; 83690; 85025; 86140; 96361; 96374; 96375; 99284; 99284-25; J1170; J2405; J2930; J7030

== ENCOUNTER 2022-09-03 03:02 | Emergency (ER) | payer BC ==
[2022-09-03] MEDS: Sodium Chloride 0.9% 10 ML Syringe FLUSH PRN (03:20)
[2022-09-03] MEDS: Ondansetron 4 MG/2 ML SDV IVPUSH ONE (03:28)
[2022-09-03] MEDS: HYDROmorphone 1 MG/ML Syringe IVPUSH ONE (03:34)
[2022-09-03 03:39] LABS: ANION GAP 12.5 mmol/L (5-15); CHLORIDE,CL 105 mmol/L (98-107); SODIUM,NA 142 mmol/L (136-145)
[2022-09-03 03:40] LABS: ESTIMATED GFR 117 mL/min (>=60)
[2022-09-03] MEDS: methylPREDNISolone Sodium Succinate 125 MG/2 ML SDV IVPUSH ONE (03:40)
[2022-09-03 06:11] VITALS: BP 157/117; PULSE 85
== END 2022-09-03 04:01 | disposition home or self-care (01) ==
LOC: KA.ED 03:02 → SUPCPDRO 03:02 → KA.ED 04:01
DX: K50.10 Crohn's disease of large intestine without complications (principal); Z88.2 Allergy status to sulfonamides
CPT/HCPCS: 36415; 80053; 83690; 85025; 96374; 96375; 99284-25; J1170; J2405; J2930; J3490

== ENCOUNTER 2022-09-11 09:30 | Emergency (ER) | payer BC ==
[2022-09-11] MEDS ORDERED: Sodium Chloride 0.9% 1,000 ML IV ONE (09:37)
[2022-09-11 10:03] LABS: CHLORIDE,CL 97 mmol/L (98-107); SODIUM,NA 133 mmol/L (136-145)
[2022-09-11 10:04] LABS: ESTIMATED GFR 114 mL/min (>=60)
[2022-09-11 10:25] LABS: CORONAVIRUS COVID-19 NAA NEGATIVE (NEGATIVE)
[2022-09-11] MEDS: Sodium Chloride 0.9% 10 ML Syringe FLUSH PRN ×2 (11:14→11:52)
[2022-09-11] MEDS ORDERED: HYDROmorphone 1 MG/ML Syringe IVPUSH ONE (11:29)
[2022-09-11] MEDS ORDERED: Ondansetron 4 MG/2 ML SDV IVPUSH ONE (11:37)
[2022-09-11 17:22] VITALS: BP 136/87; PULSE 114
== END 2022-09-11 12:10 | disposition home or self-care (01) ==
LOC: KA.ED 09:30
DX: B34.9 Viral infection, unspecified (principal); Z88.2 Allergy status to sulfonamides; Z20.822 Contact with and (suspected) exposure to COVID-19
CPT/HCPCS: 0240U; 71045; 80053; 85025; 96361; 96374; 96375; 99284; J1170; J2405; J3490; J7030

== ENCOUNTER 2022-09-15 06:05 | Emergency (ER) | payer BC ==
[2022-09-15] MEDS ORDERED: HYDROmorphone 1 MG/ML Syringe ONE (06:17)
[2022-09-15] MEDS ORDERED: Sodium Chloride 0.9% 1,000 ML ONE (06:17)
[2022-09-15] MEDS ORDERED: HYDROmorphone 1 MG/ML Syringe IVPUSH ONE ×5 (06:19→12:25)
[2022-09-15] MEDS ORDERED: Sodium Chloride 0.9% 1,000 ML IV ONE ×2 (06:19→07:59)
[2022-09-15] MEDS ORDERED: Ondansetron 4 MG/2 ML SDV ONE (06:27)
[2022-09-15] MEDS ORDERED: Ondansetron 4 MG/2 ML SDV IVPUSH ONE (06:28)
[2022-09-15 06:44] LABS: ANION GAP 9.9 mmol/L (5-15)
[2022-09-15] MEDS ORDERED: Iopamidol 755 Mg/ML 75 ML Bottle IVPUSH ONE (07:39)
[2022-09-15] MEDS ORDERED: Sodium Chloride 0.9% 50 ML IV SCH (07:45)
[2022-09-15] MEDS ORDERED: Meropenem 1 GM in Sodium Chloride 0.9% 100 ML IV SCH (09:00)
[2022-09-15] MEDS ORDERED: Sodium Chloride 0.9% 1,000 ML IV SCH (09:45)
[2022-09-15 13:06] VITALS: BP 118/78; PULSE 101
[2022-09-15] MEDS ORDERED: Sodium Chloride 0.9% 10 ML Syringe FLUSH SCH (14:00)
== END 2022-09-15 13:50 ==
LOC: KA.ED 06:05
DX: K65.1 Peritoneal abscess (principal); K50.10 Crohn's disease of large intestine without complications; K21.9 Gastro-esophageal reflux disease without esophagitis; Z88.2 Allergy status to sulfonamides; Z79.899 Other long term (current) drug therapy
CPT/HCPCS: 74177; 80053; 82150; 83605; 83690; 85025; 86140; 96361; 96365; 96375; 96376; 99284; 99285-25; J1170; J2185; J2405; J3490; J7030; Q9967

== ENCOUNTER 2022-12-17 15:35 | Emergency (ER) | payer BC ==
[2022-12-17] MEDS: Ondansetron 4 MG/2 ML SDV IVPUSH ONE (16:35)
[2022-12-17] MEDS: HYDROmorphone 1 MG/ML Syringe IVPUSH ONE (16:37)
[2022-12-17] MEDS: methylPREDNISolone Sodium Succinate 125 MG/2 ML SDV IVPUSH ONE (16:40)
[2022-12-17 16:53] VITALS: BP 149/105; PULSE 90
== END 2022-12-17 17:04 | disposition home or self-care (01) ==
LOC: KA.ED 15:35
DX: K50.90 Crohn's disease, unspecified, without complications (principal); K21.9 Gastro-esophageal reflux disease without esophagitis; Z79.899 Other long term (current) drug therapy; Z88.2 Allergy status to sulfonamides
CPT/HCPCS: 96374; 96375; 99283; 99283-25; J1170; J2405; J2930

== ENCOUNTER 2022-12-28 10:04 | Emergency (ER) | payer BC ==
[2022-12-28] MEDS ORDERED: Sodium Chloride 0.9% 10 ML Syringe FLUSH PRN (10:28)
[2022-12-28] MEDS ORDERED: Ondansetron 4 MG/2 ML SDV IVPUSH ONE (10:51)
[2022-12-28] MEDS ORDERED: HYDROmorphone 1 MG/ML Syringe IVPUSH ONE (10:51)
[2022-12-28 11:02] VITALS: BP 135/100
[2022-12-28 11:03] VITALS: PULSE 92
[2022-12-28 11:03] LABS: ANION GAP 12.7 mmol/L (5-15)
== END 2022-12-28 12:10 | disposition home or self-care (01) ==
LOC: KA.ED 10:04
DX: K50.80 Crohn's disease of both small and large intestine without complications (principal); K21.9 Gastro-esophageal reflux disease without esophagitis; Z88.2 Allergy status to sulfonamides; Z79.899 Other long term (current) drug therapy
CPT/HCPCS: 74018; 80053; 85025; 96374; 96375; 99284; 99284-25; J1170; J2405; J3490

== ENCOUNTER 2022-12-28 21:22 | Emergency (ER) | payer BC ==
[2022-12-28 21:37] VITALS: BP 133/103; PULSE 102
[2022-12-28] MEDS ORDERED: Ondansetron 4 MG Tab.DIS ONE (21:45)
[2022-12-28] MEDS ORDERED: HYDROmorphone 1 MG/ML Syringe IM ONE (21:45)
[2022-12-28] MEDS ORDERED: Ondansetron 4 MG Tab.DIS PO ONE (21:45)
== END 2022-12-28 21:59 | disposition home or self-care (01) ==
LOC: KA.ED 21:22
DX: K50.90 Crohn's disease, unspecified, without complications (principal); K21.9 Gastro-esophageal reflux disease without esophagitis; Z88.2 Allergy status to sulfonamides; Z79.899 Other long term (current) drug therapy
CPT/HCPCS: 96372; 99283; A9270-GY; J1170

== ENCOUNTER 2022-12-30 08:17 | Emergency (ER) | payer BC ==
[2022-12-30] MEDS ORDERED: Sodium Chloride 0.9% 10 ML Syringe FLUSH PRN (08:26)
[2022-12-30] MEDS ORDERED: Sodium Chloride 0.9% 1,000 ML IV ONE (08:27)
[2022-12-30 08:41] VITALS: BP 137/105; PULSE 97
[2022-12-30 08:57] LABS: ANION GAP 14.5 mmol/L (5-15)
[2022-12-30] MEDS ORDERED: HYDROmorphone 1 MG/ML Syringe IM ONE (10:01)
[2022-12-30] MEDS ORDERED: methylPREDNISolone Sodium Succinate 125 MG/2 ML SDV IVPUSH ONE (10:03)
[2022-12-30] MEDS ORDERED: methylPREDNISolone Sodium Succinate 125 MG/2 ML SDV ONE (10:06)
[2022-12-30] MEDS ORDERED: Ondansetron 4 MG Tab.DIS PO ONE (10:08)
[2022-12-30] MEDS ORDERED: Ondansetron 4 MG Tab.DIS ONE (10:08)
== END 2022-12-30 10:22 | disposition home or self-care (01) ==
LOC: KA.ED 08:17
DX: K50.80 Crohn's disease of both small and large intestine without complications (principal); K21.9 Gastro-esophageal reflux disease without esophagitis; Z88.2 Allergy status to sulfonamides; Z79.899 Other long term (current) drug therapy
CPT/HCPCS: 36415; 80053; 81003; 82150; 83690; 85025; 96361; 96372; 96374; 99284-25; A9270-GY; J1170; J2930; J7030

== ENCOUNTER 2023-02-21 20:43 | Emergency (ER) | payer BC ==
[2023-02-21] MEDS ORDERED: HYDROmorphone 1 MG/ML Syringe IM ONE (21:35)
[2023-02-21] MEDS ORDERED: Ondansetron 4 MG Tab.DIS PO ONE (21:42)
[2023-02-21 22:10] LABS: BASOPHILS ABSOLUTE AUTO 0.05 10^3/uL (0.00-0.10); BASOPHILS PERCENT AUTO 0.6 % (0.0-1.0); EOSINOPHILS ABSOLUTE AUTO 0.17 10^3/uL (0.10-0.30); HEMATOCRIT 42.8 % (40.0-52.0); HEMOGLOBIN 13.8 g/dL (13.0-17.0); IMMATURE GRAN ABSOLUTE AUTO 0.02 10^3/uL (0.00-0.50); IMMATURE GRAN PERCENT AUTO 0.2 % (0.0-5.0); LYMPHOCYTES PERCENT AUTO 18.5 % (20.0-40.0); MEAN CORPUSCULAR HEMOGLOBIN 30.6 pg (27.0-31.0); MEAN CORPUSCULAR HGB CONC 32.2 g/dL (32.0-36.0); MEAN CORPUSCULAR VOLUME 94.9 fL (82.0-92.0); MEAN PLATELET VOLUME 9.1 fL (7.4-10.4); MONOCYTES PERCENT AUTO 9.3 % (2.0-8.0); NEUTROPHILS PERCENT AUTO 69.4 % (50.0-70.0); PLATELET COUNT,PLT 433 10^3/uL (150-400); RED BLOOD CELL COUNT 4.51 10^6/uL (4.50-6.00); RED CELL DISTRIBUTION WIDTH 12.8 % (11.5-14.5); WHITE BLOOD CELL COUNT,WBC 8.64 10^3/uL (5.00-10.00)
[2023-02-21 22:37] VITALS: BP 149/99; PULSE 90
== END 2023-02-21 22:35 | disposition home or self-care (01) ==
LOC: KA.ED 20:43
DX: K50.80 Crohn's disease of both small and large intestine without complications (principal); K21.9 Gastro-esophageal reflux disease without esophagitis; Z88.2 Allergy status to sulfonamides; Z79.899 Other long term (current) drug therapy
CPT/HCPCS: 36415; 74018; 83880; 85025; 96372; 99284; A9270-GY; J1170

== ENCOUNTER 2023-03-26 19:55 | Emergency (ER) | payer BC ==
[2023-03-26] MEDS: Ondansetron 4 MG Tab.DIS PO ONE (20:58)
[2023-03-26] MEDS: methylPREDNISolone Sodium Succinate 125 MG/2 ML SDV IM ONE (21:00)
[2023-03-26] MEDS: Water For Injection, Sterile 20 ML ONE (21:05)
[2023-03-26] MEDS: Ondansetron 4 MG Tab.DIS ONE (21:08)
[2023-03-26] MEDS: HYDROmorphone 1 MG/ML Syringe IM ONE (21:10)
[2023-03-27 01:58] VITALS: BP 146/92; PULSE 88
== END 2023-03-26 21:20 | disposition home or self-care (01) ==
LOC: KA.ED 19:55
DX: K50.10 Crohn's disease of large intestine without complications (principal); Z88.2 Allergy status to sulfonamides
CPT/HCPCS: 96372; 99283; A9270-GY; J1170; J2930

== ENCOUNTER 2023-04-19 10:07 | Emergency (ER) | payer BC ==
[2023-04-19] MEDS ORDERED: Sodium Chloride 0.9% 1,000 ML ONE (10:13)
[2023-04-19] MEDS ORDERED: Sodium Chloride 0.9% 10 ML Syringe FLUSH PRN (10:15)
[2023-04-19] MEDS ORDERED: Sodium Chloride 0.9% 1,000 ML IV ONE (10:16)
[2023-04-19 10:25] LABS: BASOPHILS ABSOLUTE AUTO 0.02 10^3/uL (0.00-0.10); BASOPHILS PERCENT AUTO 0.2 % (0.0-1.0); EOSINOPHILS ABSOLUTE AUTO 0.06 10^3/uL (0.10-0.30); EOSINOPHILS PERCENT AUTO 0.6 % (1.0-3.0); HEMATOCRIT 41.4 % (40.0-52.0); IMMATURE GRAN ABSOLUTE AUTO 0.04 10^3/uL (0.00-0.50); IMMATURE GRAN PERCENT AUTO 0.4 % (0.0-5.0); LYMPHOCYTES ABSOLUTE AUTO 1.16 10^3/uL (1.00-4.00); LYMPHOCYTES PERCENT AUTO 11.2 % (20.0-40.0); MEAN CORPUSCULAR HEMOGLOBIN 30.3 pg (27.0-31.0); MEAN CORPUSCULAR HGB CONC 31.4 g/dL (32.0-36.0); MEAN CORPUSCULAR VOLUME 96.5 fL (82.0-92.0); MEAN PLATELET VOLUME 8.9 fL (7.4-10.4); MONOCYTES ABSOLUTE AUTO 0.77 10^3/uL (0.10-0.80); MONOCYTES PERCENT AUTO 7.4 % (2.0-8.0); NEUTROPHILS PERCENT AUTO 80.2 % (50.0-70.0); PLATELET COUNT,PLT 298 10^3/uL (150-400); RED BLOOD CELL COUNT 4.29 10^6/uL (4.50-6.00); RED CELL DISTRIBUTION WIDTH 14.8 % (11.5-14.5); WHITE BLOOD CELL COUNT,WBC 10.35 10^3/uL (5.00-10.00)
[2023-04-19] MEDS ORDERED: HYDROmorphone 1 MG/ML Syringe IVPUSH ONE (10:34)
[2023-04-19] MEDS ORDERED: Ondansetron 4 MG/2 ML SDV IVPUSH ONE (10:38)
[2023-04-19 10:41] LABS: ALBUMIN 3.11 g/dL (3.40-5.00); ANION GAP 13.4 mmol/L (5-15); BILIRUBIN TOTAL 0.7 mg/dL (0.2-1.0); CALCIUM 8.9 mg/dL (8.7-10.3); CARBON DIOXIDE,CO2 27.1 mmol/L (21.0-32.0); CREATININE 0.93 mg/dL (0.51-1.17); EST CRCL DRUG DOSING (CG) 118.21 mL/min; POTASSIUM,K 3.5 mmol/L (3.5-5.1); PROTEIN TOTAL,TP 6.6 g/dL (6.4-8.2)
[2023-04-19] MEDS ORDERED: Iopamidol 755 Mg/ML 100 ML Bottle IV ONE (11:23)
[2023-04-19] MEDS ORDERED: Sodium Chloride 0.9% 50 ML IV SCH (11:30)
[2023-04-19 14:28] VITALS: BP 148/95; PULSE 68
[2023-04-19] MEDS ORDERED: HYDROmorphone 2 MG Tab PO PRN (14:54)
== END 2023-04-19 15:08 | disposition home or self-care (01) ==
LOC: KA.ED 10:07
DX: K42.9 Umbilical hernia without obstruction or gangrene (principal); Z88.2 Allergy status to sulfonamides; Z79.899 Other long term (current) drug therapy
CPT/HCPCS: 74177; 80053; 82150; 83690; 85025; 96361; 96374; 96375; 99284; A9270; J1170; J2405; J3490; J7030; Q9967

== ENCOUNTER 2023-04-28 14:38 | Emergency (ER) | payer BC ==
[2023-04-28] MEDS ORDERED: Ketorolac 30 MG/ML SDV ONE (15:42)
[2023-04-28] MEDS ORDERED: Sodium Chloride 0.9% 10 ML Syringe FLUSH PRN (15:46)
[2023-04-28] MEDS ORDERED: Ketorolac 30 MG/ML SDV IVPUSH ONE (15:46)
[2023-04-28 16:13] VITALS: BP 154/100; PULSE 84
== END 2023-04-28 16:13 | disposition home or self-care (01) ==
LOC: KA.ED 14:38
DX: K50.119 Crohn's disease of large intestine with unspecified complications (principal); K21.9 Gastro-esophageal reflux disease without esophagitis; Z88.2 Allergy status to sulfonamides; Z79.899 Other long term (current) drug therapy
CPT/HCPCS: 96374; 99283-25; J1885

== ENCOUNTER 2023-05-04 17:50 | Emergency (ER) | payer BC ==
[2023-05-04] MEDS ORDERED: Sodium Chloride 0.9% 10 ML Syringe FLUSH PRN (18:08)
[2023-05-04] MEDS ORDERED: Ondansetron 4 MG/2 ML SDV IVPUSH ONE (18:08)
[2023-05-04] MEDS ORDERED: HYDROmorphone 1 MG/ML Syringe IVPUSH ONE (18:08)
[2023-05-04] MEDS ORDERED: Sodium Chloride 0.9% 1,000 ML IV ONE (18:08)
[2023-05-04 18:15] VITALS: PULSE 91
[2023-05-04 18:42] LABS: BASOPHILS ABSOLUTE AUTO 0.01 10^3/uL (0.00-0.10); BASOPHILS PERCENT AUTO 0.1 % (0.0-1.0); EOSINOPHILS ABSOLUTE AUTO 0.05 10^3/uL (0.10-0.30); EOSINOPHILS PERCENT AUTO 0.3 % (1.0-3.0); HEMATOCRIT 40.1 % (40.0-52.0); HEMOGLOBIN 12.7 g/dL (13.0-17.0); IMMATURE GRAN ABSOLUTE AUTO 0.12 10^3/uL (0.00-0.50); IMMATURE GRAN PERCENT AUTO 0.8 % (0.0-5.0); LYMPHOCYTES ABSOLUTE AUTO 1.44 10^3/uL (1.00-4.00); LYMPHOCYTES PERCENT AUTO 9.3 % (20.0-40.0); MEAN CORPUSCULAR HEMOGLOBIN 29.7 pg (27.0-31.0); MEAN CORPUSCULAR HGB CONC 31.7 g/dL (32.0-36.0); MEAN CORPUSCULAR VOLUME 93.9 fL (82.0-92.0); MEAN PLATELET VOLUME 8.9 fL (7.4-10.4); MONOCYTES ABSOLUTE AUTO 1.29 10^3/uL (0.10-0.80); MONOCYTES PERCENT AUTO 8.4 % (2.0-8.0); NEUTROPHILS ABSOLUTE AUTO 12.51 10^3/uL (2.50-7.00); NEUTROPHILS PERCENT AUTO 81.1 % (50.0-70.0); PLATELET COUNT,PLT 402 10^3/uL (150-400); RED BLOOD CELL COUNT 4.27 10^6/uL (4.50-6.00); RED CELL DISTRIBUTION WIDTH 14.5 % (11.5-14.5); WHITE BLOOD CELL COUNT,WBC 15.42 10^3/uL (5.00-10.00)
[2023-05-04 18:54] LABS: APPEARANCE,URINE CLEAR (CLEAR); BILIRUBIN,URINE NEGATIVE (NEGATIVE); COLOR,URINE LIGHT YELLOW (YELLOW); GLUCOSE,URINE NEGATIVE (NEGATIVE); KETONES,URINE NEGATIVE (NEGATIVE); LEUKOCYTE ESTERASE,URINE NEGATIVE (NEGATIVE); NITRITE,URINE NEGATIVE (NEGATIVE); OCCULT BLOOD,URINE TRACE-LYSED (NEGATIVE); PH,URINE 5.5 (5.0-9.0); PROTEIN,URINE 30 mg/dL (NEGATIVE); UROBILINOGEN,URINE 0.2 E.U./dL (0.2-1.0)
[2023-05-04 18:56] LABS: BACTERIA,URINE RARE /HPF (NONE TO FEW); EPITHELIAL CELLS,URINE RARE /LPF; RBC,URINE 0-5 /HPF (0-5); WBC,URINE 0-5 /HPF (0-5)
[2023-05-04 18:57] LABS: ALBUMIN 3.1 g/dL (3.40-5.00); ANION GAP 14.5 mmol/L (5-15); BILIRUBIN TOTAL 0.5 mg/dL (0.2-1.0); CALCIUM 8.8 mg/dL (8.7-10.3); CARBON DIOXIDE,CO2 29.7 mmol/L (21.0-32.0); CREATININE 1.29 mg/dL (0.51-1.17); EST CRCL DRUG DOSING (CG) 85.22 mL/min; POTASSIUM,K 3.2 mmol/L (3.5-5.1); PROTEIN TOTAL,TP 6.8 g/dL (6.4-8.2)
[2023-05-04] MEDS ORDERED: Ketorolac 30 MG/ML SDV IVPUSH ONE (19:00)
[2023-05-04 19:03] VITALS: BP 151/100
== END 2023-05-04 19:38 | disposition home or self-care (01) ==
LOC: KA.ED 17:50
DX: K50.90 Crohn's disease, unspecified, without complications (principal); Z88.1 Allergy status to other antibiotic agents
CPT/HCPCS: 74018; 80053; 81001; 83690; 85025; 96361; 96374; 96375; 99284-25; J1170; J1885; J3490; J7030